=== PATIENT | male | born 1950 | race Caucasian/White ===

== ENCOUNTER 2016-03-11 06:26 | Day surgery (SDC) | payer MEDICARE, BC ==
[2016-03-05 14:41] VITALS: BMI 23.7
[~2016-03-11 06:26] MED LIST: DEXAMETHASONE SOD PHOSPHATE 10 MG/ML 1 ML VIAL IV ONE; HEPARIN SODIUM,PORCINE 5,000 UNIT/ML 1 ML VIAL SQ ONE; MIDAZOLAM 2 MG/2 ML VIAL IV PRN; ONDANSETRON 4 MG/2 ML VIAL IVP ONE; ceFAZolin 2 GM in SODIUM CHLORIDE 0.9% 100 ML IVPB ONE
[2016-03-11] MEDS ORDERED: LIDOCAINE 1% 20 ML VIAL (10MG/ML) FOR IV START INTRADERMA ONE ×2 (07:27→07:28)
[2016-03-11] MEDS: LACTATED RINGERS 1,000 ML IV SCH (07:27)
--- NOTE | 2016-03-11 08:05 | P.GSHP ---
History of Present Illness H&P Date: 03/11/16 Chief Complaint: Right inguinal hernia This is a 65-year-old male referred from Dr. Huber. Patient presents today for laparoscopic robotic-assisted repair of right inguinal hernia. 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 History of Any Multi-Drug Resistant Organisms: None Reported Past Surgical History: Hernia Repair, Orthopedic Surgery Additional Past Surgical History / Comment(s): RT ROTATOR CUFF SURG. 04/06/14 RT TONGUE LASER,RT TONGUE LESION REMOVED. COLONOSCOPY 05/2015, LT INGUINAL HERNIA REPAIR Past Anesthesia/Blood Transfusion Reactions: No Reported Reaction Past Psychological History: No Psychological Hx Reported Smoking Status: Former smoker Past Alcohol Use History: Rare Additional Past Alcohol Use History / Comment(s): QUIT SMOKING APPROX 1988, SMOKED APPROX 20 YRS <1PPD,CIGARS,PIPE Past Drug Use History: None Reported - Past Family History Father Family Medical History: Myocardial Infarction (NH) Mother Family Medical History: Cancer Additional Family Medical History / Comment(s): EMPHYSEMA Medications and Allergies Home Medications Medication Instructions Recorded Confirmed Type Ascorbic Acid [Vitamin C] 500 mg PO DAILY 10/31/14 03/05/16 History Cholecalciferol [Vitamin D3] 2,000 unit PO DAILY 10/31/14 03/05/16 History Garlic 1 each PO DAILY 10/31/14 03/05/16 History Multivit-Min/FA/Lycopene/Lut 1 each PO DAILY 10/31/14 03/05/16 History [Centrum Silver Tablet] Aspirin 81 mg PO DAILY 05/24/15 03/05/16 History Calcium Carbonate/Vitamin D3 1 each PO DAILY 05/24/15 03/05/16 History [Calcium 600 + Vit D Tablet] Boyd-3 Fatty Acids/Fish Oil [Fish 1,300 mg PO DAILY 05/24/15 03/05/16 History Oil 1,000 mg Softgel] Vitamin B Complex 1 each PO DAILY 05/24/15 03/05/16 History Allergies Allergy/AdvReac Type Severity Reaction Status Date / Time No Known Allergies Allergy Verified 03/11/16 06:45 Surgical - Exam Vital Signs Temp Pulse Resp BP Pulse Ox 97.0 F L 58 L 16 150/90 99 03/11/16 07:30 03/11/16 07:30 03/11/16 07:30 03/11/16 07:30 03/11/16 07:30 - General well developed, no distress - Eyes PERRL - ENT normal pinna - Neck no masses - Respiratory normal expansion - Cardiovascular Rhythm: regular - Abdomen Abdomen: soft, non tender (Right inguinal hernia) Assessment and Plan Plan: Right internal hernia. We'll perform laparoscopic robotic system repair.
[2016-03-11] MEDS ORDERED: KETOROLAC 30 MG/ML 1 ML VIAL ONE (08:09)
[2016-03-11] MEDS ORDERED: ACETAMINOPHEN IV (For NPO) 1,000 MG/100 ML VIAL ONE (08:09)
[2016-03-11] MEDS ORDERED: fentaNYL (PF) 50 MCG/ML 2 ML AMP ONE (08:09)
[2016-03-11] MEDS ORDERED: DEXAMETHASONE SOD PHOS (MDV) 100 MG/10 ML VIAL ONE (08:09)
[2016-03-11] MEDS ORDERED: ROCURONIUM BROMIDE 10 MG/ML 10 ML VIAL IV ONE (08:09)
[2016-03-11] MEDS ORDERED: MIDAZOLAM 2 MG/2 ML VIAL ONE (08:09)
[2016-03-11] MEDS ORDERED: PROPOFOL 10 MG/ML 20 ML VIAL IV ONE ×2 (08:09)
[2016-03-11] MEDS ORDERED: ceFAZolin 1,000 MG VIAL ONE (08:09)
[2016-03-11] MEDS ORDERED: GLYCOPYRROLATE 0.2 MG/ML 2 ML VIAL ONE (08:09)
[2016-03-11] MEDS ORDERED: NEOSTIGMINE 1 MG/ML 10 ML VIAL ONE (08:09)
[2016-03-11] MEDS ORDERED: ePHEDrine 50 MG/ML 1 ML AMP ONE (08:09)
[2016-03-11] MEDS ORDERED: SODIUM CHLORIDE 0.9% 100 ML BAG ONE (08:09)
[2016-03-11] MEDS ORDERED: LIDOCAINE 1% INJ 10MG/ML (20 ML MDV) ONE (08:09)
[2016-03-11] MEDS ORDERED: BUPIVACAIN-EPI 0.25%-1:200,000 30 ML VIAL SQ ONE (08:31)
[2016-03-11] MEDS ORDERED: LACTATED RINGERS 1,000 ML IV ONE ×2 (09:37→13:21)
--- NOTE | 2016-03-11 09:53 | P.OP ---
Date of Procedure: 03/11/16 Preoperative Diagnosis: Right inguinal hernia Postoperative Diagnosis: Right inguinal hernia Right femoral hernia Recurrent left inguinal hernia Procedure(s) Performed: Laparoscopic robotic-assisted repair of right inguinal hernia, right femoral hernia, and recurrent left inguinal hernia Anesthesia: FLETCHER JUAREZ Surgeon: Connor Mcclendon Estimated Blood Loss (ml): 5 Pathology: none sent Condition: stable Disposition: PACU Description of Procedure: The patient's placed on the operating table in the supine position. The patient received general anesthesia. The patient's abdomen was prepped and draped in usual sterile fashion. The skin was anesthetized 1% local Xylocaine at the incision sites. Using an 11 blade a skin incision was made at the umbilicus. The fascia was grasped with a Ehrenberg and then the peritoneal cavity was entered with the Veress needle. Position of the Veress needle was confirmed with a positive drop test. After adequate insufflation a 5 mm trocar was placed into the peritoneal cavity. The Laparoscope was placed the peritoneal cavity. And a robotic 8 mm trocar was placed in the right lateral position and then another 8 mm robotic trochars placed in the left lateral position. The original 5 mm trocar was exchanged for a 12 mm trocar. The patient was placed in reverse Trendelenburg and then the patient was docked to the robot. Next the peritoneum over top of the right inguinal hernia was incised and then using blunt and sharp dissection and electrocautery the hernia sac was dissected free from the floor of the inguinal canal. The hernia sac was completely reduced into the peritoneal cavity. The femoral canal also contained a hernia. The incarcerated fat was reduced back into the pleural cavity. And then using the Pro cupola man mesh the hernia was repaired. The peritoneum was then sutured with 20V lock suture. The patient's left groin was examined. The there appeared to be evidence of recurrent left internal hernia. Next the peritoneum over top of the left inguinal hernia was incised and then using blunt and sharp dissection and electrocautery the hernia sac was dissected free from the floor of the inguinal canal. The hernia sac was completely reduced into the peritoneal cavity. And then using the Pro cupola man mesh the hernia was repaired. The peritoneum was then sutured with 20V lock suture. The patient was then undocked the robot. The needle was withdrawn from the peritoneal cavity. The umbilical trocar site was closed with 0 Ethibond suture. The skin was closed interrupted 3-0 Monocryl suture. Dermabond dressing was applied. Patient was sent to recovery in stable condition.
[2016-03-11 10:02] VITALS: TEMP 97.8
[2016-03-11] MEDS: HYDROmorphone 1 MG/ML 1 ML SYRINGE IVP PRN ×4 (10:21→10:42)
[2016-03-11] MEDS ORDERED: HYDROcodone/APAP 7.5-325MG 1 EACH TAB PO ONE (11:30)
[2016-03-11 11:51] VITALS: RESP 18
[2016-03-11 14:14] VITALS: BP 143/69; PULSE 75
== END 2016-03-11 16:12 | disposition home or self-care (01) ==
LOC: OR 06:26
PROVIDERS: ATTEND Surgery
DX: K40.21 Bilateral inguinal hernia, without obstruction or gangrene, recurrent (principal); K41.90 Unilateral femoral hernia, without obstruction or gangrene, not specified as recurrent; Z85.810 Personal history of malignant neoplasm of tongue; Z92.3 Personal history of irradiation; Z79.82 Long term (current) use of aspirin; Z79.899 Other long term (current) drug therapy; Z87.891 Personal history of nicotine dependence
CPT/HCPCS: 49650; 49651; C1781; J2250; J1644; J1100 ×2; J2710; J2405; J0690; J2001; J3010; J1885; J1170; J0131; J2704